=== PATIENT | female | born 1945 | race Caucasian/White ===

== ENCOUNTER → 2021-08-10 | Outpatient (CLI) | payer OTHER ==
[~2021-08-10] MED LIST: CARBIDOPA-LEVO1 EAC9 PO; LEVOTHYROXINE100 MCG PO; LISINOPRIL2.5 MG PO; LUMIGAN2.5 M1 OPHTHALMIC; SERTRALINE HCL100 MG PO; TRAZODONE HCL50 MG PO
== END ==
LOC: LAB 11:05
PROVIDERS: ATTEND Student in an Organized Health Care Education/Training Program
DX: Z01.812 Encounter for preprocedural laboratory examination (principal); Z20.822 Contact with and (suspected) exposure to COVID-19

== ENCOUNTER 2021-08-11 06:31 | Day surgery (SDC) | payer OTHER ==
[~2021-08-11] VITALS: Ht 154.9 cm; Wt 56.7 kg
[2021-08-11 07:15] VITALS: BP 125/59
[2021-08-11 11:38] VITALS: BP 125/59
== END 2021-08-11 14:30 | disposition home or self-care (01) ==
LOC: OR 06:31 → TBA 06:36 → OR 09:03
PROVIDERS: ATTEND Orthopaedic Surgery
DX: S52.022A Displaced fracture of olecranon process without intraarticular extension of left ulna, initial encounter for closed fracture (principal); M25.522 Pain in left elbow; I10 Essential (primary) hypertension; E03.9 Hypothyroidism, unspecified; F32.9 Major depressive disorder, single episode, unspecified; F41.9 Anxiety disorder, unspecified; G20 Parkinson's disease; Z98.890 Other specified postprocedural states; Z79.899 Other long term (current) drug therapy; Z86.73 Personal history of transient ischemic attack (TIA), and cerebral infarction without residual deficits; Z98.41 Cataract extraction status, right eye
CPT/HCPCS: 50010; 50101; 50341; 50386; 51412; 51739; 56524; 56525; 56528; 56667; 57091; 57178; 58118; 58465; 59110; 59111; 62110; 62900; 64043; 65060; 70005